=== PATIENT | male | born 1950 | race Caucasian/White ===

== ENCOUNTER → 2017-05-26 | Day surgery (SDC) | payer MEDICARE, BC ==
[~2017-05-26] MED LIST: LIDOCAINE 2% 100 MG/5 ML SYRINGE.; PROPOFOL 20 ML IV
[2017-05-26] MEDS: IV RINGERS,LACTATED 1000ML 1,000 ML IV ×2 (07:00→08:15)
== END ==
LOC: SURG 07:31
DX: Z09 Encounter for follow-up examination after completed treatment for conditions other than malignant neoplasm (principal); I10 Essential (primary) hypertension; E11.9 Type 2 diabetes mellitus without complications; E78.5 Hyperlipidemia, unspecified; K21.9 Gastro-esophageal reflux disease without esophagitis; Z79.82 Long term (current) use of aspirin; Z80.0 Family history of malignant neoplasm of digestive organs; Z83.71 Family history of colonic polyps; Z86.010 Personal history of colon polyps; Z87.891 Personal history of nicotine dependence; Z95.1 Presence of aortocoronary bypass graft
CPT/HCPCS: G0105; J2704

== ENCOUNTER → 2018-09-05 | Outpatient (CLI) | payer MEDICARE, BC ==
[2017-05-26 09:53] VITALS: BP 119/78
[~2018-09-05] MED LIST changes: +ACET325T9 PO; +AMLO10TA8 PO; +ASPI-252 PO; +ATOR40TA PO; +CHOL10002 PO; +COLE625T12 PO; +FENO135C PO; -LIDOCAINE 2% 100 MG/5 ML SYRINGE.; +MELO15TA23 PO; +METO100T7 PO; +MULT1TAB6 PO; +NIAC1000 PO; +OMEG1CAP2 PO; +OMEP20TA63 PO; -PROPOFOL 20 ML IV; +RAMI10CA53 PO; +SITA100T PO
--- NOTE | 2018-09-05 10:44 | CARD ---
MR#: [id number] Date of Study: 09/05/2018 Ordering Physician: RICHARDSON DIAS, Referring Physician: RICHARDSON DIAS, Tech: Nicolasa Mercedes APPROVED REPORT EXAM: Two-dimensional and M-mode echocardiogram with Doppler and color Doppler. Other Information Quality : AverageHR: 60bpm Rhythm : NSR INDICATION Hypertension/HCVD CAD RISK FACTORS Hyperlipidemia Diabetes Previous smoker 2D DIMENSIONS RVDd3.7 (2.9-3.5cm)Left Atrium(2D)4.2 (1.6-4.0cm) IVSd1.5 (0.7-1.1cm)Aortic Root(2D)3.4 (2.0-3.7cm) LVDd5.6 (3.9-5.9cm)LVOT Diameter2.4 (1.8-2.4cm) PWd1.0 (0.7-1.1cm)LVDs3.7 (2.5-4.0cm) FS (%) 33.6 %SV94.0 ml LVEF(%)61.8 (>50%) Aortic Valve AoV Peak Jag.114.7cm/sAoV VTI23.2cm AO Peak GR.5.3mmHgLVOT Peak Jag.88.2cm/s LVOT VTI 21.14cmAO Mean GR.3mmHg KATIE (VMAX)2.49tx4GAZ (VTI)4.08cm2 Mitral Valve MV E Axyivuny34.1cm/sMV DECEL SAFL328ur MV A Dcrqsqdh26.5cm/sMV UGS06qy E/A Ratio0.9MVA (PHT)3.43cm2 TDI E/Lateral E'6.1E/Medial E'8.9 Pulmonary Valve PV Peak Sdyvethc014.9cm/sPV Peak Grad.6mmHg Tricuspid Valve TR P. Ywnybokw919fj/sRAP IJWVPLOI7znIs TR Peak Gr.62vyUjOPYQ93uzHw Pulmonary Vein S1 Ssvhhoqt97.8cm/sD2 Luenirko39.4cm/s PVa [id number] LEFT VENTRICLE The left ventricle is normal size. There is mild to moderate concentric left ventricular hypertrophy. The left ventricular systolic function is normal. The Ejection Fraction is 55-60%. There is normal L V segmental wall motion. RIGHT VENTRICLE The right ventricle is borderline dilated. There is normal right ventricular wall thickness. The righ t ventricular systolic function is normal. ATRIA The left atrium is mildly dilated. The right atrium size is normal. The interatrial septum is intact with no evidence for an atrial septal defect or patent foramen ovale as noted on 2-D or Doppler imagi ng. AORTIC VALVE The aortic valve is normal in structure and function. Doppler and Color Flow revealed no significant aortic regurgitation. There is no significant aortic valvular stenosis. MITRAL VALVE The mitral valve is normal in structure and function. There is no evidence of mitral valve prolapse. There is no mitral valve stenosis. Doppler and Color Flow revealed no mitral valve regurgitation note d. TRICUSPID VALVE The tricuspid valve is normal in structure and function. Doppler and Color Flow revealed trace tricus pid valve regurgitation noted with an estimated PAP of 18 mmHg. There is no tricuspid valve stenosis. PULMONIC VALVE The pulmonic valve is not well visualized. Doppler and Color Flow revealed no pulmonic valvular regur gitation. GREAT VESSELS The aortic root is normal in size. The IVC is normal in size and collapses >50% with inspiration. PERICARDIAL EFFUSION There is no evidence of significant pericardial effusion. Critical Notification Critical Value: No <Conclusion> The left ventricular systolic function is normal. The Ejection Fraction is 55-60%. There is normal LV segmental wall motion. Trace tricuspid valve regurgitation noted with an estimated PAP of 18 mmHg. There is no evidence of significant pericardial effusion. Signed by : Richardson Dias, Electronically Approved : 09/05/2018 10:43:51
== END | disposition home or self-care (01) ==
LOC: ECHO 08:13
PROVIDERS: ATTEND Internal Medicine Cardiovascular Disease
DX: I11.9 Hypertensive heart disease without heart failure (principal); I25.10 Atherosclerotic heart disease of native coronary artery without angina pectoris; E78.5 Hyperlipidemia, unspecified; E11.9 Type 2 diabetes mellitus without complications; Z87.891 Personal history of nicotine dependence
CPT/HCPCS: 93306

== ENCOUNTER → 2018-09-20 | Outpatient (CLI) | payer MEDICARE, BC ==
[2017-05-26 09:53] VITALS: BP 119/78
--- NOTE | 2018-09-20 09:03 | RAD ---
MR#: [id number] Date of Study: 09/20/2018 Ordering Physician: RICHARDSON GIVENS, Referring Physician: RICHARDSON GIVENS Tech: Sindi Yarbrough RVT,MISTI APPROVED REPORT Patient Location: OUT-PATIENT Indications Uncontrolled HTN Renal Artery Doppler Right Renal Artery Left Renal Arter y Proximal 97.7/35.6 cm/secProximal 129.6/35.5 cm/sec Mid 65.2/22.4 cm/secMid 185.1/43.2 cm/sec Distal 71.3/25.5 cm/secDistal 66.2/22.4 cm/sec Renal/Aorta Ratio 0.80Renal/Aorta Ratio 1.60 Prox. Resistive Index 0.64Prox. Resistive Index 0.73 Mid Resistive Index 0.66Mid Resistive Index 0.77 Distal Resistive Index 0.64Distal Resistive Index 0.66 Renal Measurements RightLeft Kidney Klugin80.3 cm cmKidney Sjpwbt75.2 cm cm Right Additional FindingsLeft Additional Findings Aortic Doppler VelocityWaveform Mid. Aorta 116.1 cm/sec Findings Grayscale images of the bilateral kidneys demonstrate cortical hypertrophy. There is a small cyst in the left mid kidney measuring approximately 1 cm. This appears to be a simple cyst. Spectral waveforms and color Doppler involving the right renal artery are grossly unremarkable. Leida l resistive indices are noted. Renal to aortic ratio is within normal limits. Similarly on the left velocities are grossly within normal limits. There is mildly elevated velocity in the left mid renal artery but no significant flow-limiting stenosis is identified. Critical Notification Critical Value: No <Conclusion> No evidence of renal artery stenosis bilaterally. Signed by : Fransisco Dumas, Electronically Approved : 09/20/2018 09:02:48
== END | disposition home or self-care (01) ==
LOC: US 08:38
PROVIDERS: ATTEND Internal Medicine Cardiovascular Disease
DX: N28.81 Hypertrophy of kidney (principal); N28.1 Cyst of kidney, acquired; I10 Essential (primary) hypertension
CPT/HCPCS: 93975

== ENCOUNTER → 2019-09-03 | Outpatient (CLI) | payer MEDICARE, BC ==
[2017-05-26 09:53] VITALS: BP 119/78
[~2019-09-03] MED LIST changes: +CEPH500C PO; +DICL112S2 TP; +GLIM4TAB8 PO; +HYDR200T5 PO; +PIOG15TA42 PO; +[UNRECOGNIZED DRUG - CODE] PO
--- NOTE | 2019-09-03 11:03 | PAIN ---
DATE OF SERVICE: 09/03/2019 INITIAL CONSULTATION FOR PAIN CLINIC CHIEF COMPLAINT: Low back and bilateral lower extremity pain, right greater than left and secondary complaint is neck and bilateral shoulder pain equal. HISTORY OF PRESENT ILLNESS: The patient is a 69-year-old male who presents with history of both neck and low back pain, specifically in the low back and bilateral lower extremities, worse with walking, standing, changing positions, better with sitting or resting. It has been going on for about 10 years, not a result of any specific injury or action he is aware of, but getting worse over time and with activity. The patient has had multiple bouts of physical therapy over the years, also doing exercises and does those currently, has had epidural injections as well as medial branch facet blocks in the lumbar spine as recently in the last summer 2018 without significant help in the long-term help. The patient is taking Tylenol with some mild help about 50% sometimes and also reports he has recently seen his neurosurgeon who is his referring physician today who is not recommending any neurosurgery at this time, but conservative measures and recommends a consideration of spinal cord stimulator. The patient again has had multiple injections, therapies, exercises treatments without significant long-term results or improvement. The patient reports he does not let the pain slowing much, he just simply puts up with it, although it is becoming worse over the years. The patient reports it awakes him from sleep at night at least once or twice, does not affect his bowel or bladder control, but does affect his ability to walk and has fatigability, especially on the right side with the right leg and the pain in the posterior gluteus and thigh as well as across the low back as well as the base of the neck and shoulders with walking. The patient did have MRI scan of both cervical spine and lumbar spine, cervical spine showing multiple degenerative changes with disk bulge at C5-C6 demonstrating mild mass effect on the ventral cord, foraminal narrowing more pronounced bilaterally at C5-C6. Lumbar spine showing multiple levels of degenerative change, disk endplate and facet degenerative changes with L2-L3, L3-L4, L4-L5 and L5-S1 with moderate disk space narrowing in all these levels and bilateral foraminal extraforaminal disk osteophyte formation resulting in moderate bilateral foraminal stenosis. The patient rates his disability from 0-10, 10 being the worst, is an 8 with family home responsibilities, social activity, self-care and life support activities, 9 with recreational activities. PAST MEDICAL HISTORY: Significant for type 2 diabetes, hypertension, coronary artery disease, quit smoking in 1981, gastroesophageal reflux, history of arthritis. PREVIOUS SURGERY: Includes coronary artery bypass grafting x 3 in 2002, bilateral total knee replacements, bilateral carpal tunnel repairs, jaw fracture when he was a teenager, and bilateral cataract extractions. CURRENT MEDICATIONS: Include meloxicam, metoprolol, Lovaza, Centrum, Phytosterols, Lipitor, glimepiride, Januvia, Ecotrin, Trilipix, diclofenac, cephalexin, hydroxychloroquine, vitamin D, amlodipine, pioglitazone, and Tylenol. ALLERGIES: THE PATIENT IS ALLERGIC TO METFORMIN. FAMILY HISTORY: Significant for no major medical problems or conditions he is aware of. SOCIAL HISTORY: The patient does not drink alcohol, does not smoke, quit many years ago. Does not use any illegal, illicit or recreational drugs. He is , lives with his spouse, lives locally in [place], [place]. The patient reports he is retired, but stays very active. 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 REVIEW OF SYSTEMS: The patient's review of systems is positive for those items mentioned in history of present illness. All systems reviewed and otherwise negative. It is complete, full and well documented on the patient's chart. PHYSICAL EXAMINATION: VITAL SIGNS: The patient's blood pressure 173/86, pulse 60, respirations 16, temperature 98.3 degrees Fahrenheit, height is 5 feet 9 inches, weight is 253 pounds. GENERAL: The patient is awake, alert, oriented, appropriate, very pleasant demeanor. HEENT: Shows normocephalic, atraumatic. Extraocular movements are intact and symmetrical. Oral cavity: Mucous membranes moist and pink. Dentition is intact. NECK: Shows anterior throat supple without palpable lymphadenopathy noted. Swallow reflex symmetrical. CHEST: Shows normal on inspection. Breath sounds are clear bilaterally. HEART: Shows S1, S2 clear. No murmurs auscultated. ABDOMEN: Soft, nontender, nondistended. No palpable organomegaly is noted. No rebound or guarding demonstrated. BACK: Shows spine grossly in the midline. Normal appearing thoracic kyphosis and some minor flattening of lumbar lordotic curvature. Lumbar paraspinous muscle shows symmetrical on inspection, with palpation shows some moderate tenderness diffusely throughout the upper, middle and lower distribution of paraspinous muscles without specific radiation, no atrophy or hypertrophy, no trigger points. The patient has good rotational motion of lumbar spine, both laterally as well as extension and flexion with some minor tenderness with extension, but not with flexion and not with right and left lateral rotation. The patient's cervical spine shows normal appearance in cervical lordotic curvature. Cervical paraspinous muscle shows symmetrical on inspection, on palpation shows some moderate tenderness diffusely in the low cervical distribution bilaterally into the superior medial and lateral trapezius, but without specific trigger points or radiation. The patient has good rotational motion of cervical spine, both laterally as well as extension and flexion without significant difficulty or pain reported. EXTREMITIES: The patient's upper extremities show deep tendon reflexes 2+ in the biceps and triceps tendons. 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 Peripheral pulses are 2+ radial bilaterally. Shoulder shrug is strong and intact without loss of strength on resistance as is abduction of shoulder to 90 degrees. Lower extremities show deep tendon reflexes 1+ in the patellar and tendo calcaneus tendons. The patient has well-healed surgical scar noted over both the knees. Motor exam is strong with 5/5 dorsiflexion, extension, quadriceps and hamstring flexion and symmetrical. Peripheral pulses are 1+ posterior tibia. No peripheral edema is noted bilaterally. The patient is able to stand, stand on his toes without difficulty or loss of balance, walks with a slight shuffling gait, slightly appears to favor the right lower extremity more than left and not using any assistive devices such as canes, walking sticks. SKIN: Shows warm and dry, good turgor. No edema. No sores, rashes or bruising throughout. IMPRESSION: 1. This is a 69-year-old male with approximately 10-year history of low back pain as well as bilateral lower extremity pain, right greater than left. 2. Cervicalgia with radicular pain bilaterally, equal right and left. 3. MRI scan of both lumbar and cervical spines as noted. 4. Arthritis. 5. Hypertension. 6. Type 2 diabetes. PLAN: Options were discussed with the patient including conservative medical managements, physical therapies and interventional techniques and he has had most of these performed over time without significant improvement. We did discuss a spinal cord stimulator using description as well as anatomical models to describe the procedure as well as mechanism itself. The patient would like to look into this. He was given some information regarding the stimulator itself and we will make arrangements with insurance for preauthorization as well as psychological evaluation and plan on a spinal cord stimulator trial placement once these are completed. The patient will call with any questions or concerns in the meantime and have a psychological evaluation scheduled. LAMBERT ANNE MD DR: KAYLIN/aleida JOB#: [id number] / [id number] Virginia Rowland MD
== END | disposition home or self-care (01) ==
LOC: PNCL 08:37
PROVIDERS: ATTEND Anesthesiology
DX: M54.2 Cervicalgia (principal); M25.512 Pain in left shoulder; M25.511 Pain in right shoulder; M79.662 Pain in left lower leg; M79.661 Pain in right lower leg; I10 Essential (primary) hypertension; K21.9 Gastro-esophageal reflux disease without esophagitis; E11.9 Type 2 diabetes mellitus without complications; M19.90 Unspecified osteoarthritis, unspecified site; Z95.5 Presence of coronary angioplasty implant and graft; Z87.891 Personal history of nicotine dependence; Z79.82 Long term (current) use of aspirin; Z79.899 Other long term (current) drug therapy
CPT/HCPCS: G0463

== ENCOUNTER → 2019-09-24 | Outpatient (CLI) | payer MEDICARE, BC ==
[2017-05-26 09:53] VITALS: BP 119/78
--- NOTE | 2019-09-24 12:47 | CARD ---
MR#: [id number] Date of Study: 09/24/2019 Ordering Physician: RICHARDSON GIVENS, Referring Physician: RICHARDSON GIVENS Tech: Laurita Marley RDCS APPROVED REPORT EXAM: Two-dimensional and M-mode echocardiogram with Doppler and color Doppler. Other Information Quality : Good INDICATION Cardiac Disease: CAD 2D DIMENSIONS Left Atrium(2D)4.3 (1.6-4.0cm)IVSd1.3 (0.7-1.1cm) Aortic Root(2D)3.5 (2.0-3.7cm)LVDd5.0 (3.9-5.9cm) LVOT Diameter2.5 (1.8-2.4cm)PWd1.1 (0.7-1.1cm) LVDs3.7 (2.5-4.0cm)FS (%) 26.1 % SV61.3 mlLVEF(%)55.0 (>50%) Mitral Valve MV E Iibsvjpx74.5cm/sMV DECEL BIXQ552fe MV A Sfrvhtlm04.6cm/sMV GEZ55sm E/A Ratio1.1MVA (PHT)4.16cm2 TDI E/Lateral E'13.4E/Medial E'13.7 Pulmonary Vein S1 Ehngqske43.3cm/sD2 Qqzmfaxv12.3cm/s LEFT VENTRICLE The left ventricle is normal size. There is normal left ventricular wall thickness. The left ventricu lar systolic function is normal. The Ejection Fraction is 55-60%. There is normal LV segmental wall m otion. RIGHT VENTRICLE The right ventricle is normal size. The right ventricular systolic function is normal. ATRIA The left atrium is mildly dilated. The right atrium size is normal. The interatrial septum is intact with no evidence for an atrial septal defect or patent foramen ovale as noted on 2-D or Doppler imagi ng. AORTIC VALVE The aortic valve is normal in structure and function. Doppler and Color Flow revealed no significant aortic regurgitation. There is no significant aortic valvular stenosis. MITRAL VALVE The mitral valve is calcified but opens well. There is no evidence of mitral valve prolapse. There is no mitral valve stenosis. Doppler and Color-flow revealed trace mitral regurgitation. TRICUSPID VALVE The tricuspid valve is normal in structure and function. Doppler and Color Flow revealed no tricuspid valve regurgitation noted. There is no tricuspid valve stenosis. PULMONIC VALVE The pulmonic valve is not well visualized. Doppler and Color Flow revealed no pulmonic valvular regur gitation. There is no pulmonic valvular stenosis. GREAT VESSELS The aortic root is normal in size. The ascending aorta is not well seen. The IVC is normal in size an d collapses >50% with inspiration. PERICARDIAL EFFUSION There is no evidence of significant pericardial effusion. Critical Notification Critical Value: No <Conclusion> The left ventricular systolic function is normal. The Ejection Fraction is 55-60%. There is normal LV segmental wall motion. Trace mitral regurgitation. There is no evidence of significant pericardial effusion. Signed by : Richardson Givens, Electronically Approved : 09/24/2019 12:46:43
== END | disposition home or self-care (01) ==
LOC: ECHO 08:00
PROVIDERS: ATTEND Internal Medicine Cardiovascular Disease
DX: I34.8 Other nonrheumatic mitral valve disorders (principal); I25.10 Atherosclerotic heart disease of native coronary artery without angina pectoris
CPT/HCPCS: 93306

== ENCOUNTER → 2019-10-07 | Outpatient (CLI) | payer MEDICARE, BC ==
[2017-05-26 09:53] VITALS: BP 119/78
[~2019-10-07] MED LIST changes: +LIDOCAINE 1% PF 2 ML VIAL. ONE; +LIDOCAINE 2% PF 5 ML VIAL. ONE
--- NOTE | 2019-10-07 15:26 | PAIN ---
DATE OF SERVICE: 10/07/2019 PROGRESS NOTE FOR PAIN CLINIC DIAGNOSIS: Lumbar radiculopathy with lumbar degenerative disk disease and lumbar spinal stenosis. HISTORY OF PRESENT ILLNESS: The patient is a 69-year-old male who returns for followup status post initial evaluation and preauthorization for a spinal cord stimulator temporary leads placement. The patient has obtained that now. He passed his psychological evaluation with a good category for spinal procedures including surgery and spinal cord stimulator implant. The patient reports still significant pain in the low back, radiating to the right hip and leg, posterior gluteus, lateral thigh, anterior thigh, more on the right than the left, but present across the back bilaterally. The patient reports again worse on the right side, rates it is 9 on a scale of 10 at its worse over the past week, 7 on average, 4 at its least, and is a 7 today. The patient reports it is aching and sharp in description in the low back and the right leg; worse with walking, standing, changing positions; better with sitting, lying down; wakes him from sleep occasionally, not every night, but most nights about every 6 hours. The patient reports no new motor or sensory deficits, no new bowel or bladder incontinence or other complaints. PHYSICAL EXAMINATION: VITAL SIGNS: The patient's blood pressure is 176/95, pulse 63, respirations 16, temperature 98.1 degrees Fahrenheit, height is 5 feet 9 inches, weight is 253 pounds. GENERAL: The patient is awake, alert, oriented, appropriate, very pleasant demeanor. The patient is accompanied by his spouse. HEENT: Shows normocephalic, atraumatic. Extraocular movements are intact and symmetrical. Oral cavity shows mucous membranes moist and pink. Dentition is intact. NECK: Shows anterior throat supple without palpable lymphadenopathy noted. Swallow reflex symmetrical. CHEST: Shows normal on inspection. Breath sounds are clear bilaterally. HEART: Shows S1, S2 clear. No murmurs auscultated. ABDOMEN: Obese, soft, nontender, nondistended. No palpable organomegaly is noted. No rebound or guarding demonstrated. BACK: Shows spine grossly in the midline. Normal-appearing thoracic kyphosis and some increased flattening of lumbar lordotic curvature. Lumbar paraspinous muscle shows symmetrical on inspection, with palpation shows some moderate tenderness diffusely bilaterally, but only diffusely without significant radiation. The patient has good rotational motion of the lumbar spine, both laterally as well as extension and flexion without significant increase in pain. EXTREMITIES: Lower extremities show deep tendon reflexes at 1+ in the patellar and tendo calcaneus tendons are equal. Motor exam is 5/5 with dorsiflexion, extension, quadriceps and hamstring flexion. Peripheral pulses are 1+ posterior tibia. No peripheral edema is noted. Options were discussed with the patient. The patient's old chart was reviewed as his current medication regimen updated. Current review of systems updated today as well. We will proceed with spinal cord stimulator temporary leads placement x 2 with fluoroscopic guidance. Risks were again discussed including but not limited to bleeding, infection, possibility of epidural hematoma, subsequent neurological compromise, dural puncture, headache, spinal cord and/or nerve damage, exposure of fluoroscopy as well as migration of the leads and poor spinal cord stimulator temporary lead as well as poor results regarding pain control. The patient understands and wished to proceed. The patient will return to clinic in approximately 1 week for followup and removal of temporary leads with reassessment of the stimulator coverage at that time. DIAGNOSIS: Lumbar radiculopathy with lumbar degenerative disk disease and lumbar spinal stenosis. PROCEDURE: Spinal cord stimulator temporary leads placement x 2 under sterile prep and drape using local anesthetic. MEDICATION INJECTED: 1% lidocaine for insertion of the needles for topical anesthesia and for suturing. DESCRIPTION OF PROCEDURE: Under sterile prep and drape using a 14-gauge InThrMatead needle x 2, entry at the level to the L2-L3 interspace verified with C-arm fluoroscopic guidance with AP and lateral views after local anesthetic for needle insertion. Needle was advanced under direct fluoroscopic vision with preservative-free normal saline loss of resistance technique with negative aspiration. Spinal cord stimulator wire leads were then placed, one at a time with good visualization and direct fluoroscopic view both AP and lateral views and advanced to the level of the superior electrode at the mid body of the T7 vertebral body in the midline and again to confirm posterior with C-arm fluoroscopic guidance. This was carried out with a second wire in the same fashion with negative aspiration and preservative-free normal saline loss of resistance technique into the epidural space, again confirmed posterior in midline with AP and lateral views with fluoroscopy. Purchase and stylets were removed. Suture 2-0 silk was then used to suture the leads to the skin with anchoring devices x 2. Mastisol and Tegaderm were then placed under sterile technique. Then, the leads were bandaged. Stimulation was carried out in the procedure room prior to closure, confirming good stimulation in the low back and especially in the right leg, covering all the patient's pain regions and levels on the back and leg. CONDITION AT DISCHARGE: Stable. The patient tolerated the procedure well, had no complications. LAMBERT ANNE MD DR: KAYLIN/aleida JOB#: [id number] / [id number]
== END | disposition home or self-care (01) ==
LOC: PNCL 13:00
PROVIDERS: ATTEND Anesthesiology
DX: M51.16 Intervertebral disc disorders with radiculopathy, lumbar region (principal); M48.061 Spinal stenosis, lumbar region without neurogenic claudication; Z88.8 Allergy status to other drugs, medicaments and biological substances; Z79.899 Other long term (current) drug therapy; Z79.82 Long term (current) use of aspirin; Z87.891 Personal history of nicotine dependence
CPT/HCPCS: 63650; C1897; J3490

== ENCOUNTER → 2019-10-14 | Outpatient (CLI) | payer MEDICARE, BC ==
[2017-05-26 09:53] VITALS: BP 119/78
[~2019-10-14] MED LIST changes: -LIDOCAINE 1% PF 2 ML VIAL. ONE; -LIDOCAINE 2% PF 5 ML VIAL. ONE
--- NOTE | 2019-10-14 14:25 | PAIN ---
DATE OF SERVICE: 10/14/2019 PROGRESS NOTE FOR PAIN CLINIC DIAGNOSES: 1. Lumbar radiculopathy with lumbar degenerative disk disease and lumbar spinal stenosis. 2. Cervical radiculopathy with cervical degenerative disk disease. HISTORY OF PRESENT ILLNESS: The patient is a 69-year-old male who returns for followup status post spinal cord stimulator lead temporary placement x 2 one week ago. The patient reports he has had very good week, has had excellent stimulation and reduction of pain by about 90% in the low back and the lower extremities. The patient reports he has been increasing his distance walking, doing household activities, traveling with greater ease and comfort, sleeping better. He is very pleased with his progress. He decreased his use of Tylenol from 6 to 8 tablets a day to 0 per day. The patient is very pleased with his progress, is very pleased with the stimulator and the covers that afforded. The patient reports his pain is a 2 on a scale of 10 average, worst and least over the past week and is a 2 today. The patient reports it is aching pain only in the back and most of the pain that he had during the week was from the procedure itself. PHYSICAL EXAMINATION: VITAL SIGNS: The patient's blood pressure is 149/84, pulse 65, respirations 16, temperature 98.1 degrees Fahrenheit, height is 5 feet 9 inches, weight is 258 pounds. GENERAL: The patient is awake, alert, oriented, appropriate, very pleasant demeanor. HEENT: Shows normocephalic, atraumatic. Extraocular movements are intact and symmetrical. Oral cavity: Mucous membranes moist and pink. Dentition is intact. NECK: Shows anterior throat supple without palpable lymphadenopathy noted. Swallow reflex symmetrical. CHEST: Shows normal on inspection. Breath sounds are clear to auscultation bilaterally. HEART: Shows S1, S2 clear. ABDOMEN: Soft, nontender. BACK: Shows spine grossly in the midline. The patient's lumbar spine shows moderate tenderness with palpation diffusely throughout the upper, middle and lower distribution of paraspinous muscles. The patient's bandages were taken down and under sterile prep and drape, the sutures were removed holding in the spinal cord stimulator temporary leads that were removed with tips intact x 2. Sites clean and dry, no erythema, no drainage, no tenderness around the insertion site. EXTREMITIES: The patient's lower extremities show deep tendon reflexes 1+ in the patellar and tendo calcaneus tendons. Motor exam is 5/5 with dorsiflexion and extension and equal and symmetrical. Options were discussed with the patient. The patient's old chart was reviewed as his current medication regimen updated. Current review of systems updated today as well. We will remove the spinal cord stimulator leads as documented with tips intact x 2. Sites clean and dry. The patient had very good response with the stimulator and we will make arrangements for permanent placement with his neurosurgeon, Dr. Alcocer. The patient will follow up at this time as necessary, does have some cervical radiculopathy he would like treated in the future, but would like to take care of the spinal cord stimulator arrangements first. LAMBERT ANNE MD DR: KAYLIN/aleida JOB#: [id number] / [id number]
== END | disposition home or self-care (01) ==
LOC: PNCL 10:26
PROVIDERS: ATTEND Anesthesiology
DX: M51.16 Intervertebral disc disorders with radiculopathy, lumbar region (principal); M48.061 Spinal stenosis, lumbar region without neurogenic claudication; M50.10 Cervical disc disorder with radiculopathy, unspecified cervical region; Z88.8 Allergy status to other drugs, medicaments and biological substances; Z79.82 Long term (current) use of aspirin; Z79.899 Other long term (current) drug therapy; Z87.891 Personal history of nicotine dependence
CPT/HCPCS: G0463

== ENCOUNTER → 2020-03-16 | Outpatient (CLI) | payer MEDICARE, BC ==
[2017-05-26 09:53] VITALS: BP 119/78
[~2020-03-16] MED LIST changes: +AMLO-187 PO; -AMLO10TA8 PO; +IOHEXOL 180 MG/ML 10 ML VIAL. ONE; +methylPREDNISolone ACETATE 40 MG/ML VIAL. ONE; +methylPREDNISolone ACETATE 80 MG/ML VIAL. ONE
--- NOTE | 2020-03-16 12:33 | PDOC ---
Progress Note - Pain Clinic Date of Service: DOS: DATE: 03/16/20 TIME: 12:29 Diagnosis: Dx: Cervical radiculopathy with cervical degenerative disc disease Lumbar to colopathy with lumbar degenerative disc disease and lumbar spinal stenosis History or Present Illness: HPI: 69-year-old male returns in follow-up status post spinal cord stimulator temporary leads placement and removal with good results about 90% improvement patient is still waiting for his stimulator to be done and will be done in about 3 weeks at [facility]. The meantime patient has had increasing pain base of his neck and left shoulder and upper extremity and we discussed this back in October and patient would like to get something done with this now discussed his MRI scan with him showing some significant degenerative changes in the cervical spine and radiculopathy on the left side. Patient ports been getting worse over the past few months with increased activity radiating to the left upper extremity posterior deltoid posterior triceps and forearm anterior and posterior and into the hand with some numbness and tingling in the hands and fingers patient reports pain is constant and sharp in the neck radiating and tingling in the hand patient reports a 9 on scale 10 is worse over the past week 8 on average 6 its least and is an 8 today. Patient reports it wakes him from sleep at night when he lays on his left side also with increased activity and reaching over his head with his left arm repetitive motions and weight lifting with the left hand exacerbates it also. Patient reports no new motor or sensory deficits or other complaints. Physical Exam: VS: Blood pressure is 160/79 pulse 61 respirations 16 temperature 98.4 F and weight is 261 pounds PE: PHYSICAL EXAMINATION: GENERAL: The patient is awake, alert, oriented, appropriate, very pleasant demeanor HEENT: Shows normocephalic, atraumatic. Extraocular movements are intact and symmetrical. Oral cavity: Mucous membranes moist and pink. Dentition is intact. NECK: Shows anterior throat supple without palpable lymphadenopathy noted. Swallow reflex symmetrical. CHEST: Shows normal on inspection. Breath sounds are clear bilaterally. HEART: Shows S1, S2 clear. No murmurs auscultated. ABDOMEN: Soft, nontender, nondistended, obese. No palpable organomegaly is noted. No rebound or guarding demonstrated. BACK: Shows spine grossly in the midline. Normal-appearing cervical lordotic curvature. Cervical paraspinous muscles show symmetrical on inspection on palpation some moderate tenderness diffusely bilaterally no diffuse without significant radiation slightly more tender on the left than right into the superior medial trapezius on the left side but without trigger points or radiation. Patient has good rotation motion cervical spine both laterally greater than 45 degrees closer to 90 degrees right and left as well as full extension full forward flexion without difficulty. Patient has a well-healed transverse surgical scar in the upper thoracic distribution from previous lipoma excision. There is slightly increased thoracic kyphosis, some minor flattening of the lumbar lordotic curvature. EXTREMITIES: Upper extremities show deep tendon reflexes 2+ in the biceps and triceps tendons. 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 Peripheral pulses are 2+ posterior radial. No peripheral edema is noted bilaterally. Upper extremities are warm and dry to touch, equal in color and appearance. SKIN: Shows warm and dry, good turgor. No edema. No sores, rashes or bruising throughout. Procedure: Procedure: Options discussed with the patient. Patient chart reviewed his his current medication regimen updated current review of systems updated today as well. We will proceed with a cervical epidural steroid injection today with fluoroscopic guidance. Risks were discussed including but not limited to: Bleeding, infection, possibility of epidural hematoma and subsequent neurological compromise, dural puncture, headaches, spinal cord and/or nerve damage, side effects of steroid medication, and poor results regarding pain control. Patient understands wished to proceed. Patient return to clinic in approximate 2 weeks for follow-up with counselors return appointment activity level and side effects to be aware of. Medication Injected: Med Injected: Procedure cervical epidural steroid injection at the C6-7 level, using local anesthetic under sterile prep and drape using C-arm fluoroscopic guidance under local anesthesia medications injected ; 120 mg Depo-Medrol + 5 mL normal sali ne and 2 mL contrast; condition at discharge is stable patient tolerated procedure well. and had no complications Condition at Discharge: Condition at Discharge: Condition at discharge stable, patient tolerated procedure well had no complications. LAMBERT ANNE MD Mar 16, 2020 12:33
== END | disposition home or self-care (01) ==
LOC: PNCL 11:08
PROVIDERS: ATTEND Anesthesiology
DX: M50.10 Cervical disc disorder with radiculopathy, unspecified cervical region (principal); M51.16 Intervertebral disc disorders with radiculopathy, lumbar region; M48.061 Spinal stenosis, lumbar region without neurogenic claudication; I10 Essential (primary) hypertension; E78.00 Pure hypercholesterolemia, unspecified; E11.9 Type 2 diabetes mellitus without complications; K21.9 Gastro-esophageal reflux disease without esophagitis; G47.30 Sleep apnea, unspecified; Z79.82 Long term (current) use of aspirin; Z79.84 Long term (current) use of oral hypoglycemic drugs; Z79.899 Other long term (current) drug therapy; Z87.891 Personal history of nicotine dependence; Z98.890 Other specified postprocedural states; Z88.8 Allergy status to other drugs, medicaments and biological substances
CPT/HCPCS: 62321; J1030; J1040; Q9965

== ENCOUNTER → 2021-05-13 | Outpatient (CLI) | payer MEDICARE, BC ==
[2017-05-26 09:53] VITALS: BP 119/78
[~2021-05-13] MED LIST changes: +CHOL5000 PO; +DEXAMETHASONE PRES.FREE 10 MG/ML VIAL. ONE; -methylPREDNISolone ACETATE 40 MG/ML VIAL. ONE; -methylPREDNISolone ACETATE 80 MG/ML VIAL. ONE
--- NOTE | 2021-05-13 09:41 | PDOC4 ---
Procedure Note: ICD 10 Code: ICD 10 Code: M54.12 M50.30 Procedure Note: Patient was consented for cervical epidural steroid injection with fluoroscopic guidance. Risks were discussed including but not limited to: Bleeding, infection, possibility of epidural hematoma and subsequent neurological compromise, dural puncture, headaches, spinal cord and/or nerve damage, side effects of steroid medication, and poor results regarding pain control. Patient understands and wished to proceed. Procedure cervical epidural steroid injection at the C6-7 level, using local anesthetic under sterile prep and drape using C-arm fluoroscopic guidance under local anesthesia medications injected ; 20 mg dexamethasone +5 mL normal saline and 2 mL contrast; condition at discharge is stable patient tolerated procedure well. and had no complications LAMBERT ANNE MD May 13, 2021 09:41
--- NOTE | 2021-05-13 09:41 | PDOC ---
Progress Note - Pain Clinic Date of Service: DOS: DATE: 05/13/21 TIME: 09:37 Diagnosis: Dx: Lumbar radiculopathy lumbar degenerative disease and lumbar spinal stenosis Cervical radiculopathy with cervical degenerative disc disease History or Present Illness: HPI: 70-year-old male returns, last seen March 2020. Patient reports he did very well after his last visit but 90% improvement and has spinal cord stimulator which was placed in October 2019. Patient reports it still about 75% helping the pain in his low back and hips that his main complaint today is neck and left upper extremity pain patient reports the pain is a 9 on scale 10 is worst 7 on average 5 its least over the past week and is a 7 today patient ports tingling radiating the left arm into the thumb primarily on the left side patient reports is worse with repetitive motions reaching lifting weights and reaching over his head with his left arm. Patient reports awakens him from sleep only very rarely does not usually cause any deficits has had no loss of motor function is not been dropping items this is becoming more uncomfortable and radiating shooting with a tingling sensation into the left thumb. Physical Exam: VS: Blood pressure is 160/87 pulse 56 respirations 18 temperature 90.0 F weight is 246 pounds. PE: PHYSICAL EXAMINATION: GENERAL: The patient is awake, alert, oriented, appropriate, very pleasant in demeanor HEENT: Shows normocephalic, atraumatic. Extraocular movements are intact and symmetrical. Oral cavity: Mucous membranes moist and pink. Dentition is intact. NECK: Shows anterior throat supple without palpable lymphadenopathy noted. Swallow reflex symmetrical. CHEST: Shows normal on inspection. Breath sounds are clear bilaterally, distant but no rales rhonchi or wheezes auscultated. HEART: Shows S1, S2 clear. No murmurs auscultated. ABDOMEN: Soft, nontender, nondistended. No palpable organomegaly is noted. BACK: Shows spine grossly in the midline. Normal-appearing cervical lordotic curvature. Cervical paraspinous muscles show symmetrical with inspection, on palpation some moderate tenderness diffusely in the middle and lower distribution paraspinous muscles bilaterally slightly more on the left than the right into the superior medial trapezius but without trigger points without radiation and without asymmetry. Patient is full rotation motion cervical spine with lateral as well as full extension full forward flexion without significant difficulty or pain reported. There is slightly increased thoracic kyphosis, some minor flattening of the lumbar lordotic curvature. Lumbar paraspinous muscles show symmetrical on inspection, on palpation shows some moderate tenderness diffusely throughout the upper, middle and lower distribution of the paraspinous muscles, but without specific trigger points, without radiation of pain. The patient has good rotational motion of the lumbar spine, both laterally as well as extension and flexion without significant difficulty. EXTREMITIES: Lower extremities show deep tendon reflexes 2+ in the patellar and tendo calcaneus tendons. Motor exam is 5 on a scale of 5 with right dorsiflexion, extension, quadriceps and hamstring flexion and 5/5 on the left. Peripheral pulses are 1+ posterior tibial. No peripheral edema is noted bilaterally. Lower extremities are warm and dry to touch, equal in color and appearance. Upper extremities show deep tendon reflexes 2+ in the bicep tricep tendons, motor exam is strong with lever tender strength rated 5 out of 5 as is bicep and tricep flexion. Peripheral pulses are 2+ radial bilaterally. Shoulder shrug strong intact without loss strength on resistance bilaterally. SKIN: Shows warm and dry, good turgor. No edema. No sores, rashes or bruising throughout. Procedure: Procedure: Options were discussed with patient. Patient's chart was viewed as his current medication regimen updated current review of systems updated today as well. We will proceed with a cervical epidural steroid injection today with fluoroscopic guidance. Risks were discussed including but not limited to: Bleeding, infection, possibility of epidural hematoma and subsequent neurological compromise, dural puncture, headaches, spinal cord and/or nerve damage, side effects of steroid medication, and poor results regarding pain control. Patient understands and wished to proceed. Patient will return to the clinic in approximately 3 weeks for follow-up, was counseled as to return appointment, activity level, and side effect to be aware of. Medication Injected: Med Injected: Procedure cervical epidural steroid injection at the C6-7 level, using local anesthetic under sterile prep and drape using C-arm fluoroscopic guidance under local anesthesia medications injected ; 20 mg dexamethasone +5 mL normal saline and 2 mL contrast; condition at discharge is stable patient tolerated procedure well. and had no complications Condition at Discharge: Condition at Discharge: Condition at discharge is stable, patient tolerated the procedure well and had no complications. LAMBERT ANNE MD May 13, 2021 09:41
== END | disposition home or self-care (01) ==
LOC: PNCL 08:20
PROVIDERS: ATTEND Anesthesiology
DX: M50.30 Other cervical disc degeneration, unspecified cervical region (principal); I10 Essential (primary) hypertension; E11.9 Type 2 diabetes mellitus without complications; E78.00 Pure hypercholesterolemia, unspecified; K21.9 Gastro-esophageal reflux disease without esophagitis; M19.90 Unspecified osteoarthritis, unspecified site; Z98.890 Other specified postprocedural states; Z79.899 Other long term (current) drug therapy; Z95.1 Presence of aortocoronary bypass graft; Z87.891 Personal history of nicotine dependence
CPT/HCPCS: 62321; J1100; Q9965